=== PATIENT | male | born 1975 | race Caucasian/White ===

== ENCOUNTER 2017-09-05 10:21 | Emergency (ER) | payer OTHER ==
[~2017-09-05] VITALS: Ht 182.9 cm; Wt 129.3 kg
[~2017-09-05 10:21] MED LIST: BACTRIM DS TAB1 EACH PO; CLEOCIN HCL150 MG PO; DOXYCYCLINE 10100 MG PO; IBUPROFEN 800800 MG PO; MEDROLDOSEPACK PO; MOBIC7.5 MG PO; NOHOMEMEDICATIONS; NORCO 5-325 TA1 EACH PO; PERCOCET 5-3251 EACH PO; PREDNISONE50 MG PO; TESSALON200 MG PO; VENTOLIN HFA 1818 GM INH
[2017-09-05] MEDS ORDERED: NOHOMEMEDICATIONS (10:39)
[2017-09-05 11:20] LABS: AMP/METHAMP Negative (Negative); BARBITURATES Negative (Negative); BENZODIAZEPINES Negative (Negative); COCAINE Negative (Negative); METHADONE Negative (Negative); OPIATES Negative (Negative); PCP Negative (Negative); THC POSITIVE (Negative)
[2017-09-05 11:42] LABS: ABSOLUTE BASOPHILS 0.1 thou/uL (0.0-0.2); ABSOLUTE EOSINOPHILS 0.3 thou/uL (0.0-0.7); ABSOLUTE LYMPHOCYTES 2.3 thou/uL (0.8-5.3); ABSOLUTE MONOCYTES 0.5 thou/uL (0.0-1.2); ABSOLUTE NEUTROPHILS 5.7 thou/uL (1.6-8.1); EOSINOPHILS 3.8 %; HEMATOCRIT 46.5 % (42.0-52.0); HEMOGLOBIN 15.5 gm/dL (14.0-18.0); LYMPHOCYTES 25.9 %; MCH 29.8 pg (26.0-34.0); MCHC 33.4 g/dL (28.0-37.0); MCV 89.1 fL (80.0-100.0); MONOCYTES 6.1 %; MPV 9.5 fl. (7.2-11.1); NUCLEATED RBCS 0 /100WBC; PLATELET COUNT* 210 thou/uL (150-400); POLYS 63.2 %; RBC 5.22 mil/uL (4.50-6.00); RDW-CV 13.4 % (10.5-14.5)
[2017-09-05] MEDS ORDERED: TORADOL 10 MG T10 MG PO (12:33)
[2017-09-05] MEDS ORDERED: CYCLOBENZAPRINE5 MG PO (12:33)
[2017-09-05 13:11] VITALS: BP 150/100
== END 2017-09-05 13:12 | disposition home or self-care (01) ==
LOC: M.ERS 10:21
PROVIDERS: Personal Emergency Response Attendant
DX: G44.209 Tension-type headache, unspecified, not intractable (principal)

== ENCOUNTER 2017-12-14 23:51 | Emergency (ER) | payer OTHER ==
[~2017-12-14] VITALS: Ht 182.9 cm; Wt 127.0 kg
[~2017-12-14 23:51] MED LIST changes: +CYCLOBENZAPRINE5 MG PO; +TORADOL 10 MG T10 MG PO
[2017-12-14 23:58] VITALS: BP 149/88
[2017-12-15] MEDS ORDERED: ACCUNEB SO1.25 MG/1 INH (00:02)
[2017-12-15] MEDS ORDERED: PREDNISONE 20 M20 M1 PO (00:28)
[2017-12-15] MEDS ORDERED: PROAIR HFA8.5 GM INH (00:28)
[2017-12-15] MEDS ORDERED: ALBUTEROL2.5 MG/31 INH (00:28)
== END 2017-12-15 00:33 | disposition home or self-care (01) ==
LOC: M.ERS 23:51
DX: J45.901 Unspecified asthma with (acute) exacerbation (principal); F17.210 Nicotine dependence, cigarettes, uncomplicated

== ENCOUNTER 2018-01-07 12:48 | Emergency (ER) | payer OTHER ==
[~2018-01-07] VITALS: Ht 182.9 cm; Wt 108.9 kg
[~2018-01-07 12:48] MED LIST changes: +ACCUNEB SO1.25 MG/1 INH; +ALBUTEROL2.5 MG/31 INH; +PREDNISONE 20 M20 M1 PO; +PROAIR HFA8.5 GM INH
[2018-01-07 12:53] VITALS: BP 141/98
[2018-01-07] MEDS ORDERED: KEFLEX500 M1 PO (13:20)
== END 2018-01-07 13:24 | disposition home or self-care (01) ==
LOC: M.ERS 12:48
DX: H66.93 Otitis media, unspecified, bilateral (principal); J45.909 Unspecified asthma, uncomplicated; F17.210 Nicotine dependence, cigarettes, uncomplicated

== ENCOUNTER 2018-05-03 11:02 | Emergency (ER) | payer OTHER ==
[~2018-05-03] VITALS: Ht 182.9 cm; Wt 117.9 kg
[~2018-05-03 11:02] MED LIST changes: +KEFLEX500 M1 PO
[2018-05-03] MEDS ORDERED: HYDROCODONE-AP1 EAC6 PO (12:16)
[2018-05-03 12:28] VITALS: BP 150/92
== END 2018-05-03 12:27 | disposition home or self-care (01) ==
LOC: M.ERS 11:02
DX: S20.211A Contusion of right front wall of thorax, initial encounter (principal); J45.909 Unspecified asthma, uncomplicated; F17.210 Nicotine dependence, cigarettes, uncomplicated; X58.XXXA Exposure to other specified factors, initial encounter; Y93.89 Activity, other specified; Y92.89 Other specified places as the place of occurrence of the external cause; Y99.8 Other external cause status

== ENCOUNTER 2019-10-29 07:35 | Emergency (ER) | payer OTHER ==
[~2019-10-29] VITALS: Ht 182.9 cm; Wt 108.9 kg
[~2019-10-29 07:35] MED LIST changes: +HYDROCODONE-AP1 EAC6 PO
[2019-10-29] MEDS ORDERED: NORCO 5-325 TA1 EAC1 PO (07:56)
[2019-10-29] MEDS ORDERED: FLEXERIL PO (07:56)
[2019-10-29 08:04] VITALS: BP 176/103
== END 2019-10-29 08:04 | disposition home or self-care (01) ==
LOC: M.ERS 07:35
DX: M54.5 Low back pain (principal); J45.909 Unspecified asthma, uncomplicated; F17.210 Nicotine dependence, cigarettes, uncomplicated

== ENCOUNTER 2020-12-26 14:41 | Emergency (ER) | payer OTHER ==
[~2020-12-26] VITALS: Ht 182.9 cm; Wt 122.5 kg
[~2020-12-26 14:41] MED LIST changes: +FLEXERIL PO; +NORCO 5-325 TA1 EAC1 PO
[2020-12-26] MEDS ORDERED: LISINOPRIL20 MG PO (14:52)
[2020-12-26 15:14] LABS: ABSOLUTE BASOPHILS 0.1 thou/uL (0.0-0.2); ABSOLUTE EOSINOPHILS 0.3 thou/uL (0.0-0.7); ABSOLUTE LYMPHOCYTES 2.5 thou/uL (0.8-5.3); ABSOLUTE MONOCYTES 0.7 thou/uL (0.0-1.2); ABSOLUTE NEUTROPHILS 7.9 thou/uL (1.6-8.1); BASOPHILS 0.6 %; HEMATOCRIT 42.5 % (42.0-52.0); HEMOGLOBIN 14.7 gm/dL (14.0-18.0); LYMPHOCYTES 21.6 %; MCH 31.2 pg (26.0-34.0); MCHC 34.6 g/dL (28.0-37.0); MCV 90.2 fL (80.0-100.0); MONOCYTES 5.9 %; MPV 8.9 fl. (7.2-11.1); NUCLEATED RBCS 0 /100WBC; PLATELET COUNT* 219 thou/uL (150-400); POLYS 68.9 %; RBC 4.72 mil/uL (4.50-6.00); RDW-CV 13.7 % (10.5-14.5); WBC 11.5 thou/uL (4.0-11.0)
[2020-12-26 15:19] LABS: CALCIUM 7.9 mg/dL (8.5-10.1); CREATININE 1.5 mg/dL (0.6-1.3); POTASSIUM 3.8 mmol/L (3.5-5.1)
[2020-12-26 15:24] LABS: ALBUMIN 3.3 g/dL (3.4-5.0); TOTAL BILIRUBIN 0.2 mg/dL (<0.1-1.0); TOTAL PROTEIN 6.6 g/dL (6.4-8.2)
[2020-12-26 15:51] LABS: URINE BILIRUBIN NEGATIVE (Negative); URINE BLOOD NEGATIVE (Negative); URINE CLARITY CLEAR; URINE COLOR YELLOW; URINE GLUCOSE-RANDOM NEGATIVE (Negative); URINE KETONES TRACE (Negative); URINE LEUKOCYTES-REFLEX NEGATIVE (Negative); URINE NITRITE-REFLEX NEGATIVE (Negative); URINE PROTEIN NEGATIVE (Negative); URINE SPECIFIC GRAVITY 1.025 (1.005-1.030); URINE UROBILINOGEN 0.2 E.U./dl (0.2-1.0)
[2020-12-26] MEDS ORDERED: BENTYL 10 MG CA10 M1 PO (16:44)
[2020-12-26] MEDS ORDERED: ZOFRAN ODT4 MG PO (16:44)
[2020-12-26 16:58] VITALS: BP 138/69
== END 2020-12-26 17:00 | disposition home or self-care (01) ==
LOC: M.ERS 14:41
PROVIDERS: Nurse Practitioner Family
DX: K52.9 Noninfective gastroenteritis and colitis, unspecified (principal); E86.0 Dehydration; F17.210 Nicotine dependence, cigarettes, uncomplicated; I10 Essential (primary) hypertension; J45.909 Unspecified asthma, uncomplicated

== ENCOUNTER 2021-01-28 19:40 | Emergency (ER) | payer OTHER ==
[~2021-01-28] VITALS: Ht 182.9 cm; Wt 117.9 kg
[~2021-01-28 19:40] MED LIST changes: +BENTYL 10 MG CA10 M1 PO; +LISINOPRIL20 MG PO; +ZOFRAN ODT4 MG PO
[2021-01-28] MEDS ORDERED: PROAIR HFA8.5 GM INH ×2 (20:18→23:53)
[2021-01-28] MEDS ORDERED: PREDNISONE50 MG PO (23:53)
[2021-01-29] VITALS: BP 153/94
== END 2021-01-29 | disposition home or self-care (01) ==
LOC: M.ERS 19:40
DX: R06.00 Dyspnea, unspecified (principal); Z20.822 Contact with and (suspected) exposure to COVID-19; I10 Essential (primary) hypertension; J45.909 Unspecified asthma, uncomplicated; F17.210 Nicotine dependence, cigarettes, uncomplicated

== ENCOUNTER 2021-03-16 14:33 | Emergency (ER) | payer OTHER ==
[~2021-03-16] VITALS: Ht 182.9 cm; Wt 122.5 kg
[2021-03-16] MEDS ORDERED: PROAIR HFA8.5 GM INH (15:15)
[2021-03-16] MEDS ORDERED: TESSALON PERLE100 MG PO (15:15)
[2021-03-16] MEDS ORDERED: MEDROLDOSEPACK PO (15:15)
[2021-03-16 15:27] VITALS: BP 159/88
== END 2021-03-16 15:28 | disposition home or self-care (01) ==
LOC: M.ERS 14:33
DX: J06.9 Acute upper respiratory infection, unspecified (principal); J45.909 Unspecified asthma, uncomplicated; I10 Essential (primary) hypertension; F17.210 Nicotine dependence, cigarettes, uncomplicated; Z79.899 Other long term (current) drug therapy

== ENCOUNTER 2021-03-20 10:13 | Emergency (ER) | payer OTHER ==
[~2021-03-20] VITALS: Ht 182.9 cm; Wt 117.9 kg
[~2021-03-20 10:13] MED LIST changes: +TESSALON PERLE100 MG PO
[2021-03-20] MEDS ORDERED: FLEXERIL PO (10:43)
[2021-03-20 11:18] VITALS: BP 157/72
== END 2021-03-20 11:18 | disposition home or self-care (01) ==
LOC: M.ERS 10:13
DX: R05 Cough (principal); Z20.822 Contact with and (suspected) exposure to COVID-19; J45.909 Unspecified asthma, uncomplicated; I10 Essential (primary) hypertension; F17.210 Nicotine dependence, cigarettes, uncomplicated; Z79.899 Other long term (current) drug therapy